=== PATIENT | female | born 2000 | race Two or more races ===

== ENCOUNTER 2024-12-19 16:57 | Emergency (ER) | payer SELFPAY ==
[2024-12-19] MEDS: Sodium Chloride 0.9% 10 ML Syringe FLUSH PRN (17:20)
[2024-12-19] MEDS: Ondansetron 4 MG/2 ML SDV IVPUSH ONE (17:24)
[2024-12-19] MEDS: HYDROmorphone 2 MG/ML SDV IVPUSH ONE (17:24)
[2024-12-19 17:32] LABS: BASOPHILS ABSOLUTE AUTO 0.0 x10-3/uL (0.0-0.1); BASOPHILS PERCENT AUTO 0.3 % (0.2-1.5); EOSINOPHILS ABSOLUTE AUTO 0.1 x10-3/uL (0.0-0.8); EOSINOPHILS PERCENT AUTO 0.9 % (0.6-8.1); LYMPHOCYTES ABSOLUTE AUTO 2.4 x10-3/uL (1.0-4.4); LYMPHOCYTES PERCENT AUTO 23.1 % (18.4-52.1); MEAN PLATELET VOLUME 7.2 fL (7.1-12.4); MONOCYTES ABSOLUTE AUTO 0.5 x10-3/uL (0.3-1.0); MONOCYTES PERCENT AUTO 5.2 % (4.4-15.7); NEUTROPHILS ABSOLUTE AUTO 7.2 x10-3/uL (1.5-6.3); NEUTROPHILS PERCENT AUTO 70.5 % (30.8-76.2); PLATELET COUNT,PLT 337 x10(3)uL (151-488); RED BLOOD CELL COUNT 4.85 x10(6)uL (3.60-5.20); RED CELL DISTRIBUTION WIDTH 15.7 % (12.3-16.5); WHITE BLOOD CELL COUNT,WBC 10.3 x10-3/uL (3.0-10.3)
[2024-12-19 17:38] LABS: BLOOD UREA NITROGEN,BUN 10 mg/dL (7-18); CARBON DIOXIDE,CO2 21 mmol/L (21-32); CHLORIDE,CL 105 mmol/L (100-110); CREATININE 0.7 mg/dL (0.55-1.02); EST CRCL DRUG DOSING (CG) 100.74 mL/min; ESTIMATED GFR 122 mL/min (>60); GLUCOSE RANDOM 113 mg/dL (80-116); POTASSIUM,K 3.5 mmol/L (3.5-5.3); SODIUM,NA 136 mmol/L (135-145)
[2024-12-19 17:42] LABS: A/G RATIO 1.0; ALANINE AMINOTRANSFERASE,ALT 21 U/L (12-36); ASPARTATE AMNIOTRANSFERASE,AST 16 IU/L (5-25); BILIRUBIN TOTAL 0.4 mg/dL (0.1-1.3); PROTEIN TOTAL,TP 7.7 g/dL (6.0-8.0)
[2024-12-19] MEDS: Ketorolac 30 MG/ML SDV IVPUSH ONE (18:15)
== END 2024-12-19 20:00 | disposition home or self-care (01) ==
LOC: FB.ED 16:57
DX: O03.9 Complete or unspecified spontaneous abortion without complication (principal)
CPT/HCPCS: 36415; 80053; 84702; 85025; 96374; 96375; 99284; J1171; J1885; J2405